=== PATIENT | female | born 1995 | race Caucasian/White ===

== ENCOUNTER 2016-05-19 17:33 | Emergency (ER) | payer MEDICAID ==
[~2016-05-19] VITALS: Ht 167.6 cm; Wt 68.9 kg
[2016-05-19 20:50] VITALS: BP 113/85
== END 2016-05-19 21:08 | disposition home or self-care (01) ==
LOC: ER 17:39
DX: S53.402A Unspecified sprain of left elbow, initial encounter (principal); V23.0XXA Motorcycle driver injured in collision with car, pick-up truck or van in nontraffic accident, initial encounter; Y93.55 Activity, bike riding; Y92.89 Other specified places as the place of occurrence of the external cause; Y99.8 Other external cause status
CPT/HCPCS: 73080; 73090; 81025